=== PATIENT | male | born 1970 | race Caucasian/White ===

== ENCOUNTER 2018-03-01 09:26 | Observation (INO) ==
[2018-03-01 10:44] LABS: Baso % (Auto) 0.9 % (0.0-2.0); Eos # (Auto) 0.3 th/mm3 (0.0-0.4); Eos % (Auto) 5.8 % (0.0-4.0); Hematocrit 45.8 % (39.0-51.0); Hemoglobin 15.7 gm/dL (13.0-17.0); Lymph # (Auto) 1.7 th/mm3 (1.0-4.8); Lymph % (Auto) 33.7 % (9.0-44.0); Mean Corpuscular HGB Conc 34.4 % (32.0-36.0); Mean Corpuscular Volume 90.3 fL (80.0-100.0); Mean Platelet Volume 7.7 fL (7.0-11.0); Mono # (Auto) 0.4 th/mm3 (0.0-0.9); Mono % (Auto) 7.5 % (0.0-8.0); Neut # (Auto) 2.6 th/mm3 (1.8-7.7); Neut % (Auto) 52.1 % (16.0-70.0); Platelet Count 212 th/mm3 (150-450); Red Blood Count 5.08 mil/mm3 (4.50-5.90); Red Cell Distribution Width 13.7 % (11.6-17.2)
--- NOTE | 2018-03-01 10:57 | XR ---
EXAM DATE: 03/01/2018 10:17 AM EDT AGE/SEX: 47 years / Male INDICATIONS: Chest pain. CLINICAL DATA: This is the patient's initial encounter. Patient reports that signs and symptoms have been present for 1 day and indicates a pain score of 6/10. MEDICAL/SURGICAL HISTORY: None. None. COMPARISON: No prior exams available for comparison. FINDINGS: A single AP view of the chest demonstrates the lungs to be symmetrically aerated without evidence of mass, infiltrate or effusion. The cardiomediastinal contours are unremarkable. Osseous structures a re intact. CONCLUSION: 1. No acute cardiopulmonary disease. Electronically signed by: Edinson Flores MD 03/01/2018 10:56 AM EDT
[2018-03-01 10:58] LABS: Anion Gap 5 meq/L (5-15); Aspartate Aminotransferase 18 U/L (15-37); Blood Urea Nitrogen 14 mg/dL (7-18); Calcium 8.5 mg/dL (8.5-10.1); Carbon Dioxide 26.8 meq/L (21.0-32.0); Chloride 107 meq/L (98-107); Glomerular Filtration Rate 65 mL/min (>89); Glucose,Random 102 mg/dL (74-106); Potassium 4.2 meq/L (3.5-5.1); Sodium 139 meq/L (136-145)
[2018-03-01 10:59] LABS: Alanine Aminotransferase 28 U/L (12-78)
[2018-03-01 11:03] LABS: Alkaline Phosphatase 77 U/L (45-117); Total Protein 7.3 g/dL (6.4-8.2)
[2018-03-01 11:35] LABS: Activated Partial Thrombo Time 28.1 sec (24.3-30.1); Prothrombin Time 10.5 sec (9.8-11.6)
--- NOTE | 2018-03-01 13:03 | ED ---
HPI General Chief complaint: Chest Pain Stated complaint: Chest Pain Complaint/Doctor Sent Time Seen by Provider: 03/01/18 09:45 History of Present Illness HPI narrative: Patient 47-year-old male presents emergency department for evaluation of tightness in his left chest accompanied with some mild shortness of breath. Patient states is worse when he is up and walking around. Never had pain like this before. Concerned because he just recently traveled back from [facility]. He was told that he could have a blood clot in his chest. He is a cigarette smoker, no high blood pressure no high cholesterol, no strong family history of heart disease. Symptoms moderate, started yesterday, associated signs and symptoms in context as above. Related Data Home Medications Medication Instructions Recorded Confirmed No Known Home Medications 03/01/18 03/01/18 Allergies Allergy/AdvReac Type Severity Reaction Status Date / Time No Known Allergies Allergy Verified 03/01/18 09:48 Review of Systems ROS: all other systems reviewed are negative PMFSH Surgical History Surgical History Hx of appendectomy (Acute) Social History Social History Substance History: No History of Abuse Second Hand Smoke Exposure: Yes Smoking Status: Current every day smoker Tobacco Type: Cigarettes Packs Per Day: 0.5 Cigarettes Per Day: 10.0 Years Smoked: 25 Pack-Years: 12.50 How Often Do You Have a Drink Containing Alcohol: Monthly or less Hx Recent Travel: No Recent Travel in [facility] within the Last 8 Weeks: No Recent Out of Country Travel within the Last 8 Weeks: No Immunization History Tetanus Immunization: <5 Years Exam Narrative Exam Narrative: GENERAL: Well-developed well-nourished no obvious distress SKIN: Focused skin assessment warm/dry. HEAD: Atraumatic. Normocephalic. EYES: Pupils equal and round. No scleral icterus. No injection or drainage. ENT: No nasal bleeding or discharge. Mucous membranes pink and moist. NECK: Trachea midline. No JVD. CARDIOVASCULAR: Regular rate and rhythm. No murmur appreciated. No murmurs gallops or rubs, 2+ [place] pulses in all 4 extremities. RESPIRATORY: No accessory muscle use. Clear to auscultation. Breath sounds equal bilaterally. GASTROINTESTINAL: Abdomen soft, non-tender, nondistended. Hepatic and splenic margins not palpable. MUSCULOSKELETAL: No obvious deformities. No clubbing. No cyanosis. No edema. NEUROLOGICAL: Awake and alert. No obvious cranial nerve deficits. Motor grossly within normal limits. Normal speech. PSYCHIATRIC: Appropriate mood and affect; insight and judgment normal. Course Initial Documented Vital Signs Temperature 98.3 F 03/01/18 09:30 Pulse Rate 87 03/01/18 09:30 Respiratory Rate 18 03/01/18 09:30 Blood Pressure 154/86 H 03/01/18 09:30 Pulse Oximetry 99 03/01/18 09:30 Last Documented Vital Signs Temperature 97.8 F 03/01/18 13:37 Pulse Rate 68 03/01/18 13:37 Respiratory Rate 17 03/01/18 13:37 Blood Pressure 130/69 03/01/18 13:37 Pulse Oximetry 99 03/01/18 13:37 Medical Decision Making MDM Narrative Medical decision making narrative: Patient 47-year-old male fairly low risk as far as past medical history for coronary artery disease. He was given aspirin, nitroglycerin completely relieved his discomfort. Initial EKG chest x-ray troponin negative. Discussed with the patient possibility for chest pain center observation given his relief of nitroglycerin and he is agreeable. Medical Screen Exam Complete: Yes Emergency Medical Condition: Yes Lab Data Result diagrams: 03/01/18 10:04 03/01/18 10:04 Lab Results 03/01/18 03/01/18 03/01/18 Range/Units 10:04 10:04 10:52 WBC 5.0 (4.0-11.0) th/mm3 RBC 5.08 (4.50-5.90) mil/mm3 Hgb 15.7 (13.0-17.0) gm/dL Hct 45.8 (39.0-51.0) % MCV 90.3 (80.0-100.0) fL MCH 31.0 (27.0-34.0) pg MCHC 34.4 (32.0-36.0) % RDW 13.7 (11.6-17.2) % Plt Count 212 (150-450) th/mm3 MPV 7.7 (7.0-11.0) fL Neut % (Auto) 52.1 (16.0-70.0) % Lymph % (Auto) 33.7 (9.0-44.0) % [place] % (Auto) 7.5 (0.0-8.0) % Eos % (Auto) 5.8 H (0.0-4.0) % Baso % (Auto) 0.9 (0.0-2.0) % Neut # (Auto) 2.6 (1.8-7.7) th/mm3 Lymph # (Auto) 1.7 (1.0-4.8) th/mm3 [place] # (Auto) 0.4 (0.0-0.9) th/mm3 Eos # (Auto) 0.3 (0.0-0.4) th/mm3 Baso # (Auto) 0.0 (0.0-0.2) th/mm3 WBC Differential . Differential Comment Auto diff final PT 10.5 (9.8-11.6) sec INR 1.0 Ratio APTT 28.1 (24.3-30.1) sec D-Dimer Quant (PE/DVT) Less than 0.19 (0.00-0.50) mg/L FEU Sodium 139 (136-145) meq/L Potassium 4.2 (3.5-5.1) meq/L Chloride 107 (98-107) meq/L Carbon Dioxide 26.8 (21.0-32.0) meq/L Anion Gap 5 (5-15) meq/L BUN 14 (7-18) mg/dL Creatinine 1.21 (0.60-1.30) mg/dL Estimated GFR 65 L (>89) mL/min Random Glucose 102 (74-106) mg/dL Calcium 8.5 (8.5-10.1) mg/dL Total Bilirubin 0.4 (0.2-1.0) mg/dL AST 18 (15-37) U/L ALT 28 (12-78) U/L Alkaline Phosphatase 77 (45-117) U/L Total Creatine Kinase (39-308) U/L Troponin I Less than 0.02 L (0.02-0.05) ng/mL Total Protein 7.3 (6.4-8.2) g/dL Albumin 4.0 (3.4-5.0) g/dL 03/01/18 Range/Units 14:10 WBC (4.0-11.0) th/mm3 RBC (4.50-5.90) mil/mm3 Hgb (13.0-17.0) gm/dL Hct (39.0-51.0) % MCV (80.0-100.0) fL MCH (27.0-34.0) pg MCHC (32.0-36.0) % RDW (11.6-17.2) % Plt Count (150-450) th/mm3 MPV (7.0-11.0) fL Neut % (Auto) (16.0-70.0) % Lymph % (Auto) (9.0-44.0) % [place] % (Auto) (0.0-8.0) % Eos % (Auto) (0.0-4.0) % Baso % (Auto) (0.0-2.0) % Neut # (Auto) (1.8-7.7) th/mm3 Lymph # (Auto) (1.0-4.8) th/mm3 [place] # (Auto) (0.0-0.9) th/mm3 Eos # (Auto) (0.0-0.4) th/mm3 Baso # (Auto) (0.0-0.2) th/mm3 WBC Differential Differential Comment PT (9.8-11.6) sec INR Ratio APTT (24.3-30.1) sec D-Dimer Quant (PE/DVT) (0.00-0.50) mg/L FEU Sodium (136-145) meq/L Potassium (3.5-5.1) meq/L Chloride (98-107) meq/L Carbon Dioxide (21.0-32.0) meq/L Anion Gap (5-15) meq/L BUN (7-18) mg/dL Creatinine (0.60-1.30) mg/dL Estimated GFR (>89) mL/min Random Glucose (74-106) mg/dL Calcium (8.5-10.1) mg/dL Total Bilirubin (0.2-1.0) mg/dL AST (15-37) U/L ALT (12-78) U/L Alkaline Phosphatase (45-117) U/L Total Creatine Kinase 84 (39-308) U/L Troponin I Less than 0.02 L (0.02-0.05) ng/mL Total Protein (6.4-8.2) g/dL Albumin (3.4-5.0) g/dL Imaging Data Radiologist's impression: Chest X-Ray 03/01/18 10:17 CONCLUSION: 1. No acute cardiopulmonary disease. Discharge Plan Discharge Disposition Patient Disposition: 30 Still Patient Discharge Condition Condition: Stable Discharge Details Diagnosis: Chest pain Physicians Team ED Provider: Jamie Fairchild Primary Care Provider: Primary Care Janae Casas Attending Provider: Juliocesar Mcclellan Other Providers: [facility],Insurance Discharge Interventions Interventions: ED Discharge Assessment Last Done: 03/01/18 14:10 Status ED Status: Left Department Discharge Information Discharge Date/Time: 03/01/18 14:10
--- NOTE | 2018-03-01 13:53 | P.HPCA ---
History of Present Illness Primary Care Physician: No Primary Care Physician Chief Complaint: Chest pain History of Present Illness: 47-year-old male current smoker without known significant past medical history presents emergency room for further evaluation of chest pain. Onset last Monday. Location left anterior chest with radiation to left arm. Characterizes tightness. Duration constant. Moderate in severity. No associated symptoms of nausea, vomiting, dyspnea, or diaphoresis. Associated symptoms include "heart racing." Reported to feel regular. No particular position makes pain better or worse. No precipitating or relieving factors. No recent injury. No recent fever or illness. Visiting from [facility] [place]. Past cardiac testing None Social history No known hypertension, hyperlipidemia, or diabetes. Does not follow with a primary care provider. Current smoker 1/2 pack daily. No alcohol or recreational drug use. . 2 young children. Endorses an active lifestyle. Family history Noncontributory for early onset cardiovascular disease - Diagnosis (1) Atypical chest pain (2) Tobacco abuse Review of Systems All other systems reviewed negative except as stated in HPI PMFSH - History History Provided By: Patient - Medical History Medical History: Medical History (Last Reviewed 03/01/18 @ 13:53 by MADDISON Diaz) No significant medical problems No significant past surgical history Smoker - Surgical History Surgical History: Surgical History (Last Updated 03/01/18 @ 13:53 by MADDISON Diaz) Hx of appendectomy - Social History I have reviewed the patient's Social History: Yes - Tobacco History Second Hand Smoke Exposure: Yes Tobacco Use In Past 30 Days: Yes Smoking Status: Current every day smoker Tobacco Type: Cigarettes Packs Per Day: 0.5 Years Smoked: 25 - Alcohol History How Often Do You Have a Drink Containing Alcohol: Monthly or less - Substance Use History Substance History: No History of Abuse - Travel History History of Recent Travel: No Recent Travel in the [place] Within the Last 8 Weeks: No Recent Travel Out of the Country Within the Last 8 Weeks: No - Immunization History Tetanus Immunization: <5 Years Medications and Allergies Active Medications: Active Medications Sodium Chloride (Ns Flush) 2 ml IV.FLUSH UNSCH PRN PRN Reason: FLUSH AFTER USING IV ACCESS Last Admin: 03/01/18 10:28 Dose: 2 ml Sodium Chloride (Ns Flush) 2 ml IV.FLUSH BID JUSTINE Sodium Chloride (Ns Flush) 2 ml IV.FLUSH PRN PRN PRN Reason: FLUSH AFTER USING IV ACCESS Allergies Allergy/AdvReac Type Severity Reaction Status Date / Time No Known Allergies Allergy Verified 03/01/18 09:48 Home Medications Medication Instructions Recorded Confirmed Type No Known Home Medications 03/01/18 03/01/18 History Exam Vital signs: Vital Signs 03/01/18 09:30 03/01/18 10:17 03/01/18 10:47 Temperature 98.3 F 97.7 F Pulse Rate 87 74 74 Respiratory Rate 18 17 Blood Pressure 154/86 H 133/83 Pulse Oximetry 99 100 100 03/01/18 11:04 03/01/18 11:05 03/01/18 11:27 Temperature 97.8 F Pulse Rate 77 Respiratory Rate 16 16 17 Blood Pressure 127/84 Pulse Oximetry 98 03/01/18 12:30 03/01/18 13:37 Temperature 97.9 F 97.8 F Pulse Rate 69 68 Respiratory Rate 15 17 Blood Pressure 136/84 130/69 Pulse Oximetry 99 99 Intake & Output 02/28/18 03/01/18 03/01/18 18:59 06:59 18:59 Weight 83.915 kg Narrative: GENERAL: Alert WN, WD, NAD, pleasant, male HEAD: NC, AT EYES: Sclera clear, conjunctiva without injection, pupils equal and round ENT: Mucous membranes pink and moist NECK: Supple, no masses, trachea midline CV: RRR, without murmur, rub, gallop, no JVD, S1-S2 no S3-S4. No carotid or femoral bruits. Chest wall nontender to palpation. RESP: Clear lungs throughout bilateral, no crackles, wheeze, rhonchi, symmetrical chest rise, nonlabored, able to speak in full sentences ABD: Soft, NT, ND, no masses, positive bowel tones EXT: Pulses +2x4, no dependent edema MS: Normal tone x4 extremities, nontender, no obvious deformities, full range of motion NEURO: CN II through CN XII grossly intact, motor strength 5/5, gait WNL PSYCH: A+O x3, flat affect, appropriate speech, mood, insight and judgment SKIN: Normal turgor, normal texture, no lesions, no rashes, brisk cap refill, even hair distribution, multiple tattoos Results 10/18/18 10:04 03/01/18 10:04 Cardiac Enzymes 03/01/18 Range/Units 10:04 AST 18 (15-37) U/L Troponin I Less than 0.02 L (0.02-0.05) ng/mL Coagulation 03/01/18 Range/Units 10:52 PT 10.5 (9.8-11.6) sec APTT 28.1 (24.3-30.1) sec CBC 03/01/18 Range/Units 10:04 WBC 5.0 (4.0-11.0) th/mm3 RBC 5.08 (4.50-5.90) mil/mm3 Hgb 15.7 (13.0-17.0) gm/dL Hct 45.8 (39.0-51.0) % Plt Count 212 (150-450) th/mm3 Neut # (Auto) 2.6 (1.8-7.7) th/mm3 Lymph # (Auto) 1.7 (1.0-4.8) th/mm3 [place] # (Auto) 0.4 (0.0-0.9) th/mm3 Eos # (Auto) 0.3 (0.0-0.4) th/mm3 Baso # (Auto) 0.0 (0.0-0.2) th/mm3 Comprehensive Metabolic Panel 03/01/18 Range/Units 10:04 Sodium 139 (136-145) meq/L Potassium 4.2 (3.5-5.1) meq/L Chloride 107 (98-107) meq/L Carbon Dioxide 26.8 (21.0-32.0) meq/L BUN 14 (7-18) mg/dL Creatinine 1.21 (0.60-1.30) mg/dL Calcium 8.5 (8.5-10.1) mg/dL AST 18 (15-37) U/L ALT 28 (12-78) U/L Alkaline Phosphatase 77 (45-117) U/L Total Protein 7.3 (6.4-8.2) g/dL Albumin 4.0 (3.4-5.0) g/dL Intake and Output 02/28/18 03/01/18 03/01/18 22:59 06:59 14:59 Other: Weight 83.915 kg Patient Weight 03/02/18 06:59 Weight 83.915 kg - Imaging and Cardiology Imaging: Impressions Chest X-Ray 03/01/18 10:17 CONCLUSION: 1. No acute cardiopulmonary disease. EKG interpretations - EKG EKG results cardiology: WNL, sinus rhythm, normal axis, normal QRS Caprini VTE Risk Assessment Caprini VTE Risk Assessment: No/Low Risk (score <= 1) Caprini Risk Assessment Model: Point Value = 1 Point Value = 2 Point Value = 3 Point Value = 5 Age 41-60 Minor surgery BMI > 25 kg/m2 Swollen legs Varicose veins or History of unexplained or recurrent spontaneous Oral contraceptives or hormone replacement Sepsis (< 1 month) Serious lung disease, including pneumonia (< 1 month) Abnormal pulmonary function Acute myocardial infarction Congestive heart failure (< 1 month) History of inflammatory bowel disease Medical patient at bed rest Age 61-74 Arthroscopic surgery Major open surgery (> 45 min) Laparoscopic surgery (> 45 min) Malignancy Confined to bed (> 72 hours) Immobilizing plaster cast Central venous access Age >= 75 History of VTE Family history of VTE Factor V Leiden Prothrombin [id number] Lupus anticoagulant Anticardiolipin antibodies Elevated serum homocysteine Heparin-induced thrombocytopenia Other congenital or acquired thrombophilia Stroke (< 1 month) Elective arthroplasty Hip, pelvis, or leg fracture Acute spinal cord injury (< 1 month) Prophylaxis Regimen: Total Risk Factor Score Risk Level Prophylaxis Regimen 0-1 Low Early ambulation 2 Moderate Order ONE of the following: *Sequential Compression Device (SCD) *Heparin 5000 units SQ BID 3-4 Higher Order ONE of the following medications: *Heparin 5000 units SQ TID *Enoxaparin/Lovenox 40 mg SQ daily (WT < 150 kg, CrCl > 30 mL/min) *Enoxaparin/Lovenox 30 mg SQ daily (WT < 150 kg, CrCl > 10-29 mL/min) *Enoxaparin/Lovenox 30 mg SQ BID (WT < 150 kg, CrCl > 30 mL/min) AND/OR *Sequential Compression Device (SCD) 5 or more Highest Order ONE of the following medications: *Heparin 5000 units SQ TID (Preferred with Epidurals) *Enoxaparin/Lovenox 40 mg SQ daily (WT < 150 kg, CrCl > 30 mL/min) *Enoxaparin/Lovenox 30 mg SQ daily (WT < 150 kg, CrCl > 10-29 mL/min) *Enoxaparin/Lovenox 30 mg SQ BID (WT < 150 kg, CrCl > 30 mL/min) AND *Sequential Compression Device (SCD) Assessment and Plan - Assessment (1) Atypical chest pain Code(s): R07.89 - Other chest pain Status: Acute Plan: Admitted chest pain center. ACS ruled out with 2 sets of EKGs and cardiac enzymes. Seen and evaluated by Dr. Juliocesar Mcclellan. proceed with exercise cardiac testing. If unremarkable plans are to discharge home with follow-up with primary care provider. Encouraged establishing with a primary care provider for well checks, lipid panel, and preventative care. Patient completed exercise cardiac testing however nonspecific ST segment changes. Monitor overnight proceed with nuclear exercise cardiac testing in a.m. Patient agreeable to plan of care. (2) Tobacco abuse Code(s): Z72.0 - Tobacco use Status: Chronic Plan: Strongly encouraged and stressed the importance of tobacco cessation. Instructed to quit smoking.
[2018-03-01 14:44] LABS: Creatine Kinase 84 U/L (39-308)
--- NOTE | 2018-03-01 16:27 | TR ---
Date Performed: 03/01/2018 Time Performed: 15:49:30 DOCTOR: Juliocesar Mcclellan DRUG LIST: CLINICAL HISTORY: REASON FOR TEST: Chest pain REASON FOR ENDING: OBSERVATION: CONCLUSION: Jero protocol completed. Stopped sec to dysnpea and leg fatigue. Maximum GC=053 Max HR Achieved=89.0% Maximum CQ=409/78 Total Exercise Time=7:33. Horizontial st segments inferior and V 5, V6. No ectopy. Normal bp response. Reprod chest pressure worse at peak, improved during recovery b ut not completely. Recovery quick and unremarkable. COMMENTS: variable ST 1.o mm depression inferior and in V6, cant rule out ischemia.
--- NOTE | 2018-03-01 18:02 | ECG ---
Date Performed: 03/01/2018 Time Performed: 09:48:00 PTAGE: 47 years EKG: Sinus rhythm WITH OCCASIONAL VENTRICULAR PREMATURE COMPLEX BORDERLINE ECG NO PREVIOUS TRACING DOCTOR: Luis Mack Interpretating Date/Time 03/01/2018 18:01:31
--- NOTE | 2018-03-02 08:42 | P.PNCA ---
Subjective Interval history: Continues to left anterior waxing and waning sharp pains. No new complaints overnight. Medications and Allergies Active Medications: Active Medications Sodium Chloride (Ns Flush) 2 ml IV.FLUSH UNSCH PRN PRN Reason: FLUSH AFTER USING IV ACCESS Last Admin: 03/01/18 10:28 Dose: 2 ml Sodium Chloride (Ns Flush) 2 ml IV.FLUSH BID JUSTINE Last Admin: 03/01/18 20:16 Dose: 2 ml Sodium Chloride (Ns Flush) 2 ml IV.FLUSH PRN PRN PRN Reason: FLUSH AFTER USING IV ACCESS Allergies Allergy/AdvReac Type Severity Reaction Status Date / Time No Known Allergies Allergy Verified 03/01/18 09:48 Home Medications Medication Instructions Recorded Confirmed Type No Known Home Medications 03/01/18 03/01/18 History Physical Exam Vital signs: Vital Signs 03/01/18 09:30 03/01/18 10:17 03/01/18 10:47 Temperature 98.3 F 97.7 F Pulse Rate 87 74 74 Respiratory Rate 18 17 Blood Pressure 154/86 H 133/83 Pulse Oximetry 99 100 100 03/01/18 11:04 03/01/18 11:05 03/01/18 11:27 Temperature 97.8 F Pulse Rate 77 Respiratory Rate 16 16 17 Blood Pressure 127/84 Pulse Oximetry 98 03/01/18 12:30 03/01/18 13:37 03/01/18 19:45 Temperature 97.9 F 97.8 F 98.1 F Pulse Rate 69 68 64 Respiratory Rate 15 17 16 Blood Pressure 136/84 130/69 121/79 Pulse Oximetry 99 99 97 03/01/18 20:00 03/02/18 00:00 03/02/18 04:00 Temperature 97.9 F 97.7 F Pulse Rate 57 L 58 L 58 L Respiratory Rate 16 16 Blood Pressure 115/70 128/72 Pulse Oximetry 99 98 Intake & Output 03/01/18 03/02/18 03/02/18 18:59 06:59 18:59 Weight 83.915 kg 83.915 kg Other: # Voids 2 Date of Last Bowel Movement 02/28/18 03/01/18 - Constitutional no acute distress - Routine HEENT Exam Head: Present: normocephalic, atraumatic - Routine Neck Exam Present: supple - Routine Respiratory Exam Present: CTA bilaterally. Absent: rhonchi, stridor, wheezes - Routine Cardiovascular Exam Present: RRR, S1, S2. Absent: murmur, gallop, rubs - Routine Abdominal Exam Present: soft, normoactive bowel sounds Results 03/01/18 10:04 03/01/18 10:04 Cardiac Enzymes 03/01/18 03/01/18 Range/Units 10:04 14:10 AST 18 (15-37) U/L Troponin I Less than 0.02 L Less than 0.02 L (0.02-0.05) ng/mL Coagulation 03/01/18 Range/Units 10:52 PT 10.5 (9.8-11.6) sec APTT 28.1 (24.3-30.1) sec CBC 03/01/18 Range/Units 10:04 WBC 5.0 (4.0-11.0) th/mm3 RBC 5.08 (4.50-5.90) mil/mm3 Hgb 15.7 (13.0-17.0) gm/dL Hct 45.8 (39.0-51.0) % Plt Count 212 (150-450) th/mm3 Neut # (Auto) 2.6 (1.8-7.7) th/mm3 Lymph # (Auto) 1.7 (1.0-4.8) th/mm3 [place] # (Auto) 0.4 (0.0-0.9) th/mm3 Eos # (Auto) 0.3 (0.0-0.4) th/mm3 Baso # (Auto) 0.0 (0.0-0.2) th/mm3 Comprehensive Metabolic Panel 03/01/18 Range/Units 10:04 Sodium 139 (136-145) meq/L Potassium 4.2 (3.5-5.1) meq/L Chloride 107 (98-107) meq/L Carbon Dioxide 26.8 (21.0-32.0) meq/L BUN 14 (7-18) mg/dL Creatinine 1.21 (0.60-1.30) mg/dL Calcium 8.5 (8.5-10.1) mg/dL AST 18 (15-37) U/L ALT 28 (12-78) U/L Alkaline Phosphatase 77 (45-117) U/L Total Protein 7.3 (6.4-8.2) g/dL Albumin 4.0 (3.4-5.0) g/dL Intake and Output 03/01/18 03/02/18 03/02/18 22:59 06:59 14:59 Other: # Voids 2 Date of Last Bowel Movement 03/01/18 Weight 83.915 kg - Imaging and Cardiology Imaging: Impressions Chest X-Ray 03/01/18 10:17 CONCLUSION: 1. No acute cardiopulmonary disease. Assessment and Plan - Assessment (1) Atypical chest pain Code(s): R07.89 - Other chest pain Status: Acute Plan: Monitor on telemetry overnight. Telemetry reviewed. Proceed with plan nuclear exercise cardiac testing today. If unremarkable plans are to discharge home with follow-up with primary care provider. (2) Tobacco abuse Code(s): Z72.0 - Tobacco use Status: Chronic Plan: Strongly encouraged and stressed the importance of tobacco cessation. Instructed to quit smoking.
[2018-03-02 08:44] VITALS: RESP 20
--- NOTE | 2018-03-02 11:35 | NM ---
EXAM DATE: 03/02/2018 8:25 AM EDT AGE/SEX: 47 years / Male INDICATIONS: Angina. . Chest pain x 7 days. CLINICAL DATA: This is the patient's subsequent encounter. Patient reports that signs and symptoms h ave been present for 1 week and indicates a pain score of 0/10. MEDICAL/SURGICAL HISTORY: . Smoker. None. COMPARISON: No prior exams available for comparison. DOSE: 8.2 mCi Tc 99m Myoview at rest 26.3 mCi [id number] at stress REST HEART RATE: 64 BPM TARGET HEART RATE: 149 BPM MAX HEART RATE: 158 BPM REST BLOOD PRESSURE: 138/80 mmHg MAX BLOOD PRESSURE: 162/84 mmHg EJECTION FRACTION: 55 % TECHNIQUE: The patient underwent upright treadmill exercise in the chest pain center. Continuous EC G tracing was monitored during stress. Gated SPECT imaging was performed after stress, and conventio nal SPECT imaging was performed at rest. The examination was performed on a SPECT/CT scanner, both a ttenuation-corrected and non-corrected datasets were reviewed. FINDINGS: Distribution: The maximum perfused segment at stress is in the lateral wall. Perfusion: There is a fixed anterior wall defect as well as a fixed apical defect. No definite reve rsible perfusion defects are identified. Gated Study: There are intact wall motion and wall thickening without hypokinetic or dyskinetic segme nts. The ejection fraction is calculated at 55%. RISK CATEGORY: Low (<1% Annual Motality Rate) CONCLUSION: 1. No definite reversible perfusion defects are identified to suggest stress-induced myocardial isch emia. Electronically signed by: Norman Silverman MD 03/02/2018 11:33 AM EDT
[2018-03-02] MEDS ORDERED: Ketorolac Inj 30 MG/ML (IVP) Vial IV.PUSH ONE (12:30)
[2018-03-02 12:37] VITALS: BP 121/78; PULSE 67; TEMP 97.4; O2SAT 100
--- NOTE | 2018-03-02 15:42 | TR ---
Date Performed: 03/02/2018 Time Performed: 10:30:42 DOCTOR: Juliocesar Mcclellan DRUG LIST: CLINICAL HISTORY: CHEST PAIN REASON FOR TEST: REASON FOR ENDING: OBSERVATION: CONCLUSION: Jero protocol completed. Stopped sec to exceeding target heart rate and leg fatigue . Maximum SB=911 Max HR Achieved=90.0% Maximum WB=580/80 Total Exercise Time=10:16. No ectopy. Slight st jpoint depression inferior. Chest pressure during exam, not worsen during peak exercise. Normal b p response. Recovery quick and unremarkable. Nuclear images pending. COMMENTS: Conclusion: Normal treadmill exercise. No evidence of ischemia.
--- NOTE | 2018-03-02 15:48 | ECG ---
Date Performed: 03/01/2018 Time Performed: 14:12:15 PTAGE: 47 years EKG: Sinus rhythm NORMAL ECG INTERPRETATION BASED ON A DEFAULT AGE OF 40 YEARS PREVIOUS TRACING : 03/01/2018 09.48 Since previous tracing, no significant change noted DOCTOR: Juliocesar Mcclellan Interpretating Date/Time 03/02/2018 15:47:48
== END 2018-03-02 13:50 | disposition home or self-care (01) ==
LOC: NEDA 09:26 → NEPE 09:26 → NEPFCDU 14:10